=== PATIENT | female | born 2005 | race Caucasian/White ===

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

== ENCOUNTER 2023-04-04 13:08 | Emergency (ER) | payer MEDICAID | END 2023-04-04 13:20 | disposition left against medical advice (07) | LOC: ER 13:08 | DX: O62.9 Abnormality of forces of labor, unspecified (principal); Z3A.34 34 weeks gestation of pregnancy | CPT/HCPCS: 99281 ==